=== PATIENT | female | born 1995 | race Caucasian/White ===

== ENCOUNTER 2021-11-28 12:49 | Observation (INO) | payer MEDICAID ==
[~2021-11-28] VITALS: Ht 157.5 cm; Wt 72.6 kg
[~2021-11-28 12:49] MED LIST: DOCU-138 PO; IBUP-779 PO
== END 2021-11-28 15:40 | disposition home or self-care (01) ==
LOC: 8 EST LDRP 12:49
PROVIDERS: ADMIT Obstetrics & Gynecology; ATTEND Obstetrics & Gynecology
DX: O36.8130 Decreased fetal movements, third trimester, not applicable or unspecified (principal); Z3A.31 31 weeks gestation of pregnancy
CPT/HCPCS: 59025; 76805; 76818; G0378; 99281; G0379

== ENCOUNTER 2025-06-10 00:23 | Emergency (ER) | payer MEDICAID, OTHER ==
[~2025-06-10] VITALS: Ht 167.6 cm; Wt 92.9 kg
[~2025-06-10 00:23] MED LIST changes: -IBUP-779 PO
[2025-06-10 00:33] VITALS: O2SAT 99
[2025-06-10] MEDS ORDERED: OFLO5DRO4 LEFT EAR (01:20)
[2025-06-10] MEDS: ACETAMINOPHEN 325MG TABLET PO ONE (01:36)
[2025-06-10 01:41] VITALS: BP 119/70; PULSE 83; RESP 16; TEMP 36.9; O2SAT 99
== END 2025-06-10 01:41 | disposition home or self-care (01) ==
LOC: ER 00:23
DX: H60.90 Unspecified otitis externa, unspecified ear (principal)
CPT/HCPCS: 99283